=== PATIENT | female | born 1970 | race Caucasian/White ===

== ENCOUNTER → 2016-09-09 | Outpatient (CLI) | payer OTHER ==
--- NOTE | 2016-09-09 10:11 | XR ---
EXAMINATION TYPE: XR chest 2V DATE OF EXAM: 09/09/2016 9:58 AM HISTORY: Breast cancer. REFERENCE: Previous study dated 09/08/2015. FINDINGS: There has been a previous left mastectomy. The lungs are clear. Pleural spaces are clear. The heart is normal. IMPRESSION: NO ACUTE INTRATHORACIC ABNORMALITY.
--- NOTE | 2016-09-09 10:42 | MM ---
Reason for exam: history of breast cancer, mastectomy. Last mammogram was performed 1 year ago. History: Patient has history of breast cancer at age 43 and is nulliparous. Malignant US LT VAD breast biopsy of the left breast, June 26, 2013. Mastectomy. Chemotherapy. Radiation therapy. Taking tamoxifen for 3 months. Physical Findings: Nurse did not find any significant physical abnormalities on exam. MG Diagnostic Mammo RT w CAD CC, MLO, ML, spot compression MLO, and spot compression CC view(s) were taken of the right breast. Prior study comparison: September 08, 2015, right breast MG 3d diag mammo w/cad RT. September 04, 2014, right breast MG diagnostic mammo RT w CAD. The breast tissue is heterogeneously dense. This may lower the sensitivity of mammography. Finding: Architectural distortion in the upper outer quadrant of the right breast. New finding since September 08, 2015 and September 04, 2014. These results were verbally communicated with the patient and result sheet given to the patient on 09/09/16. ASSESSMENT: Incomplete: need additional imaging evaluation, BI-RAD 0 RECOMMENDATION: Ultrasound of the right breast.
--- NOTE | 2016-09-09 10:46 | USB ---
Reason for exam: additional evaluation requested from abnormal screening. History: Patient has history of breast cancer at age 43 and is nulliparous. Malignant US LT VAD breast biopsy of the left breast, June 26, 2013. Mastectomy. Chemotherapy. Radiation therapy. Taking tamoxifen for 3 months. US Breast Limited RT Right breast ultrasound demonstrates no cystic or solid lesion seen. These results were verbally communicated with the patient and result sheet given to the patient on 09/09/16. ASSESSMENT: Negative, BI-RAD 1 RECOMMENDATION: Follow-up diagnostic mammogram of the right breast in 1 year.
== END | disposition home or self-care (01) ==
LOC: RADMAMWWP 08:37
PROVIDERS: ATTEND Internal Medicine Hematology & Oncology
DX: R92.2 Inconclusive mammogram (principal); Z85.3 Personal history of malignant neoplasm of breast
CPT/HCPCS: 71020; 76642; G0206

== ENCOUNTER 2016-12-26 12:31 | Emergency (ER) | payer OTHER ==
[2016-12-26 12:40] VITALS: BP 136/97; PULSE 113; RESP 18
[2016-12-26] MEDS ORDERED: CEPHALEXIN 500 MG CAP PO STA (12:47)
[2016-12-26] MEDS ORDERED: IBUPROFEN ORAL SUSP 100 MG/5 ML CUP PO ONE (12:51)
--- NOTE | 2016-12-26 12:59 | ED ---
ENT HPI - General Chief complaint: Dental/Oral Stated complaint: Tooth abcess Time Seen by Provider: 12/26/16 12:45 Source: patient Mode of arrival: ambulatory Limitations: no limitations - History of Present Illness Initial comments: Patient is a 46-year-old female presenting to the emergency department with complaints of dental pain to tooth #28 and right-sided facial swelling that started when patient woke up this morning. Patient currently rates pain 8 out of 10, described as sharp, exacerbated with eating, no relieving factors. Patient denies chills, fevers, nausea, vomiting, shortness of breath, chest pain, or abdominal pain. Patient denies ear pain, decreased hearing, or difficulty swallowing. Patient denies antibiotic use in the last 30 days. Patient denies history of similar symptoms. No treatment prior to arrival. Context- Dental: history of dental caries, poor dental care, other (Multiple fractured teeth) Associated Symptoms: gum swelling - Related Data Home Medications Medication Instructions Recorded Confirmed Tamoxifen [Nolvadex] 20 mg PO DAILY 08/16/14 05/25/15 Previous Rx's Medication Instructions Recorded Cephalexin [Cephalexin Susp] 500 mg PO Q6H #560 ml 12/26/16 Allergies Allergy/AdvReac Type Severity Reaction Status Date / Time No Known Allergies Allergy Verified 12/26/16 12:37 Review of Systems ROS Statement: Those systems with pertinent positive or pertinent negative responses have been documented in the HPI. ROS Other: All systems not noted in ROS Statement are negative. Past Medical History Past Medical History: Cancer Additional Past Medical History / Comment(s): LT BREAST History of Any Multi-Drug Resistant Organisms: None Reported Past Surgical History: Breast Surgery Additional Past Surgical History / Comment(s): breast biopsy, port a cath insertion,, left mastectomy Past Anesthesia/Blood Transfusion Reactions: No Reported Reaction Past Psychological History: No Psychological Hx Reported Smoking Status: Former smoker Past Alcohol Use History: None Reported Past Drug Use History: None Reported - Past Family History Father Family Medical History: Cancer Mother Family Medical History: Cancer General Exam Limitations: no limitations General appearance: alert, in no apparent distress Head exam: Present: atraumatic, normocephalic, normal inspection Eye exam: Present: normal appearance. Absent: scleral icterus, conjunctival injection, periorbital swelling, periorbital tenderness ENT exam: Present: normal oropharynx, mucous membranes moist, TM's normal bilaterally, normal external ear exam Expanded Ear exam: Present: normal external inspection Mouth exam: Present: tongue normal. Absent: drooling, trismus Teeth exam: Present: dental caries, fractured tooth # (Patient has multiple fractured teeth and teeth missing.), dental tenderness # (28), other (Swelling to buccal mucosa and lower mouth on right side with no obvious abscess identified) Throat exam: normal inspection. negative: tonsillar erythema, tonsillomegaly, tonsillar exudate, R peritonsillar mass, L peritonsillar mass Neck exam: Present: normal inspection, full ROM. Absent: tenderness, lymphadenopathy Respiratory exam: Present: normal lung sounds bilaterally. Absent: respiratory distress, wheezes, rales, rhonchi, stridor Cardiovascular Exam: Present: regular rate, normal rhythm, tachycardia, normal heart sounds GI/Abdominal exam: Present: soft, normal bowel sounds. Absent: distended, tenderness, guarding, rebound, rigid Extremities exam: Present: normal inspection, full ROM, normal capillary refill. Absent: tenderness Neurological exam: Present: alert, oriented X3, normal gait, other (No focal deficits noted). Absent: motor sensory deficit Psychiatric exam: Present: normal affect, normal mood Skin exam: Present: warm, dry, intact, normal color Course Vital Signs 12/26/16 12:38 Temperature 100.3 F H Pulse Rate 113 H Respiratory 18 Rate Blood Pressure 136/97 O2 Sat by Pulse 97 Oximetry Medical Decision Making - Medical Decision Making Patient is a 46-year-old male presenting with dental pain and facial swelling to right lower mouth without drainable abscess identified. Patient started on antibiotics and given prescription for antibiotics and pain medication. Patient instructed to follow-up with [facility] on Tuesday and return to the emergency department with new or worsening symptoms. Patient agrees to treatment plan. Discharge instructions and return parameters reviewed. Disposition Clinical Impression: Toothache, Fracture of tooth, Acute pulpitis Disposition: HOME SELF-CARE Condition: Good Instructions: Dental Abscess (ED), Toothache (ED) Additional Instructions: Finish antibiotic as prescribed. Please follow-up with [facility] on Tuesday. Phone number provided on handout. Continue Motrin every 4-6 hours for pain as needed. May apply warm compresses to site to help reduce swelling. Patient returned to the emergency department with increased swelling, pain, fevers, nausea, vomiting, difficulty breathing, unable to swallow, or jaw opening. Prescriptions: Cephalexin [Cephalexin Susp] 500 mg PO Q6H #560 ml Referrals: None,Stated [Primary Care Provider] - 1-2 days Time of Disposition: 12:58
[2016-12-26] MEDS ORDERED: CEPHALEXIN 125 MG/5 ML BOTTLE PO STA (13:12)
[2016-12-26 13:50] VITALS: TEMP 100.1
== END 2016-12-26 13:49 | disposition home or self-care (01) ==
LOC: EC 12:31
DX: S02.5XXA Fracture of tooth (traumatic), initial encounter for closed fracture (principal); K04.01 Reversible pulpitis; K02.9 Dental caries, unspecified; R00.0 Tachycardia, unspecified; Z87.891 Personal history of nicotine dependence; Z79.899 Other long term (current) drug therapy; Z85.3 Personal history of malignant neoplasm of breast; Z90.12 Acquired absence of left breast and nipple
CPT/HCPCS: 99282

== ENCOUNTER → 2017-09-12 | Outpatient (CLI) | payer OTHER ==
--- NOTE | 2017-09-12 10:52 | XR ---
EXAMINATION TYPE: XR chest 2V DATE OF EXAM: 09/12/2017 COMPARISON: 09/09/2016 HISTORY: Breast cancer. Chest pain. TECHNIQUE: Frontal and lateral views of the chest are obtained. FINDINGS: There is no focal air space opacity, pleural effusion, or pneumothorax seen. The cardiac silhouette size is within normal limits. The osseous structures are intact. Minimal multilevel dege nerative changes of the thoracic spine are seen. Left breast shadow is absent from mastectomy. IMPRESSION: No acute cardiopulmonary process.
--- NOTE | 2017-09-12 13:14 | MM ---
Reason for exam: additional evaluation requested from prior study. Last mammogram was performed 1 year ago. History: Patient has history of breast cancer at age 43 and is nulliparous. Malignant US LT VAD breast biopsy of the left breast, June 26, 2013. Mastectomy. Chemotherapy. Radiation therapy. Taking tamoxifen beginning at age 44. Physical Findings: Nurse did not find any significant physical abnormalities on exam. MG Diagnostic Mammo RT w CAD CC, MLO, spot compression CC, spot compression MLO, and LM view(s) were taken of the right breast. Prior study comparison: September 09, 2016, right breast MG diagnostic mammo RT w CAD. September 08, 2015, right breast MG 3d diag mammo w/cad RT. The breast tissue is heterogeneously dense. This may lower the sensitivity of mammography. Architectural distortion and a focal asymmetry persist in the upper outer quadrant 6.5-7.5cm from nipple on the right breast in the upper outer quadrant. These results were verbally communicated with the patient and result sheet given to the patient on 09/12/17. ASSESSMENT: Incomplete: need additional imaging evaluation, BI-RAD 0 RECOMMENDATION: Ultrasound of the right breast. (upper outer quadrant)
--- NOTE | 2017-09-12 13:16 | USB ---
Reason for exam: additional evaluation requested from abnormal screening. History: Patient has history of breast cancer at age 43 and is nulliparous. Malignant US LT VAD breast biopsy of the left breast, June 26, 2013. Mastectomy. Chemotherapy. Radiation therapy. Taking tamoxifen beginning at age 44. US Breast Limited RT Right breast ultrasound demonstrates no cystic or solid lesion seen. No sonographic finding. 6 month follow up for a right breast focal asymmetry. These results were verbally communicated with the patient and result sheet given to the patient on 09/12/17. ASSESSMENT: Probably benign, BI-RAD 3 RECOMMENDATION: Ultrasound of the right breast in 6 months.
== END | disposition home or self-care (01) ==
LOC: RADMAMWWP 10:24
PROVIDERS: ATTEND Internal Medicine Hematology & Oncology
DX: Z08 Encounter for follow-up examination after completed treatment for malignant neoplasm (principal); Z85.3 Personal history of malignant neoplasm of breast; Z17.0 Estrogen receptor positive status [ER+]; Z71.3 Dietary counseling and surveillance
CPT/HCPCS: 71046; 77065

== ENCOUNTER → 2018-03-14 | Outpatient (CLI) | payer OTHER ==
--- NOTE | 2018-03-15 10:35 | MM ---
Reason for exam: additional evaluation requested from prior study. Last mammogram was performed 6 months ago. History: Patient is postmenopausal, has history of breast cancer at age 43, and is nulliparous. Malignant US LT VAD breast biopsy of the left breast, June 26, 2013. Mastectomy. Chemotherapy. Radiation therapy. Taking tamoxifen beginning at age 44. Physical Findings: Nurse did not find any significant physical abnormalities on exam. MG Diagnostic Mammo RT w CAD CC, MLO, ML, and spot compression CC view(s) were taken of the right breast. Prior study comparison: September 12, 2017, right breast MG diagnostic mammo RT w CAD. September 09, 2016, right breast MG diagnostic mammo RT w CAD. The breast tissue is heterogeneously dense. This may lower the sensitivity of mammography. Posterior and lateral asymmetric density is unchanged for 6 months. Additional 6 month follow up recommended. These results were verbally communicated with the patient and result sheet given to the patient on 03/14/18. ASSESSMENT: Probably benign, BI-RAD 3 RECOMMENDATION: Follow-up diagnostic mammogram of the right breast in 6 months.
== END | disposition home or self-care (01) ==
LOC: RADUSWWP 09:43
PROVIDERS: ATTEND Internal Medicine Hematology & Oncology
DX: R92.8 Other abnormal and inconclusive findings on diagnostic imaging of breast (principal); Z85.3 Personal history of malignant neoplasm of breast
CPT/HCPCS: 77065

== ENCOUNTER → 2018-09-22 | Outpatient (CLI) | payer OTHER ==
--- NOTE | 2018-09-22 10:37 | MM ---
Reason for exam: follow-up at short interval from prior study. Last mammogram was performed 6 months ago. History: Patient is postmenopausal, has history of breast cancer at age 43, and is nulliparous. Malignant US LT VAD breast biopsy of the left breast, June 26, 2013. Mastectomy. Chemotherapy. Radiation therapy. Taking tamoxifen beginning at age 44. Physical Findings: Nurse did not find any significant physical abnormalities on exam. MG Diagnostic Mammo RT w CAD CC, MLO, XCCL, spot compression MLO, and spot compression CC view(s) were taken of the right breast. Prior study comparison: March 14, 2018, right breast MG diagnostic mammo RT w CAD. September 12, 2017, right breast MG diagnostic mammo RT w CAD. The breast tissue is heterogeneously dense. This may lower the sensitivity of mammography. No significant new findings when compared with previous films. These results were verbally communicated with the patient and result sheet given to the patient on 09/22/18. ASSESSMENT: Benign, BI-RAD 2 RECOMMENDATION: Follow-up diagnostic mammogram of the right breast in 6 months.
== END | disposition home or self-care (01) ==
LOC: RADMAMWWP 07:28
PROVIDERS: ATTEND Internal Medicine Hematology & Oncology
DX: R92.8 Other abnormal and inconclusive findings on diagnostic imaging of breast (principal); Z85.3 Personal history of malignant neoplasm of breast
CPT/HCPCS: 77065

== ENCOUNTER → 2019-09-24 | Outpatient (CLI) | payer OTHER ==
--- NOTE | 2019-09-24 10:48 | MM ---
Reason for exam: additional evaluation requested from prior study. Last mammogram was performed 1 year ago. History: Patient is postmenopausal, has history of breast cancer at age 43, and is nulliparous. Malignant US LT VAD breast biopsy of the left breast, June 26, 2013. Mastectomy. Chemotherapy. Radiation therapy. Taking tamoxifen beginning at age 44. Physical Findings: Nurse did not find any significant physical abnormalities on exam. MG Diagnostic Mammo RT w CAD CC and MLO view(s) were taken of the right breast. Prior study comparison: September 22, 2018, right breast MG diagnostic mammo RT w CAD. March 14, 2018, right breast MG diagnostic mammo RT w CAD. The breast tissue is heterogeneously dense. This may lower the sensitivity of mammography. No suspicious abnormality. Lateral posterior depth right asymmetry appears improved from 2016. These results were verbally communicated with the patient and result sheet given to the patient on 09/24/19. ASSESSMENT: Negative, BI-RAD 1 RECOMMENDATION: Follow-up diagnostic mammogram of the right breast in 1 year.
== END | disposition home or self-care (01) ==
LOC: RADMAMWWP 09:27
PROVIDERS: ATTEND Internal Medicine Hematology & Oncology
DX: R92.8 Other abnormal and inconclusive findings on diagnostic imaging of breast (principal); Z85.3 Personal history of malignant neoplasm of breast
CPT/HCPCS: 77065

== ENCOUNTER → 2020-11-12 | Outpatient (CLI) | payer OTHER ==
--- NOTE | 2020-11-12 11:58 | MM ---
Reason for exam: additional evaluation requested from prior study. Last mammogram was performed 1 year and 2 months ago. History: Patient is postmenopausal, has history of breast cancer at age 43, and is nulliparous. Malignant US LT VAD breast biopsy of the left breast, June 26, 2013. Mastectomy. Chemotherapy. Radiation therapy. Taking tamoxifen beginning at age 44. Physical Findings: Nurse did not find any significant physical abnormalities on exam. MG Diagnostic Mammo RT w CAD CC, MLO, and XCCL view(s) were taken of the right breast. Prior study comparison: September 24, 2019, right breast MG diagnostic mammo RT w CAD. September 22, 2018, right breast MG diagnostic mammo RT w CAD. The breast tissue is heterogeneously dense. This may lower the sensitivity of mammography. There is no discrete abnormality. No significant new findings when compared with previous films. These results were verbally communicated with the patient and result sheet given to the patient on 11/12/20. ASSESSMENT: Negative, BI-RAD 1 RECOMMENDATION: Follow-up diagnostic mammogram of the right breast in 1 year.
== END | disposition home or self-care (01) ==
LOC: RADMAMWWP 10:39
PROVIDERS: ATTEND Internal Medicine Hematology & Oncology
DX: Z08 Encounter for follow-up examination after completed treatment for malignant neoplasm (principal); Z85.3 Personal history of malignant neoplasm of breast; Z90.12 Acquired absence of left breast and nipple
CPT/HCPCS: 77065

== ENCOUNTER → 2021-11-16 | Outpatient (CLI) | payer OTHER ==
--- NOTE | 2021-11-17 08:15 | MM ---
Reason for exam: screening (asymptomatic). Last mammogram was performed 1 year ago. History: Patient is postmenopausal, has history of breast cancer at age 43, and is nulliparous. Malignant US LT VAD breast biopsy of the left breast, June 26, 2013. Mastectomy. Chemotherapy. Radiation therapy. Taking tamoxifen beginning at age 44. Physical Findings: A clinical breast exam by your physician is recommended on an annual basis and results should be correlated with mammographic findings. MG Screen Stephie Unilateral W/Cad CC and MLO view(s) were taken of the right breast. Prior study comparison: November 12, 2020, right breast MG diagnostic mammo RT w CAD. September 24, 2019, right breast MG diagnostic mammo RT w CAD. The breast tissue is heterogeneously dense. This may lower the sensitivity of mammography. There is no discrete abnormality. ASSESSMENT: Negative, BI-RAD 1 RECOMMENDATION: Routine screening mammogram of the right breast in 1 year.
== END | disposition home or self-care (01) ==
LOC: RADMAMWWP 09:25
PROVIDERS: ATTEND Internal Medicine Hematology & Oncology
DX: Z12.31 Encounter for screening mammogram for malignant neoplasm of breast (principal); Z78.0 Asymptomatic menopausal state; Z85.3 Personal history of malignant neoplasm of breast; Z90.10 Acquired absence of unspecified breast and nipple; Z92.3 Personal history of irradiation
CPT/HCPCS: 77067

== ENCOUNTER → 2022-11-17 | Outpatient (CLI) | payer OTHER ==
--- NOTE | 2022-11-18 09:10 | MM ---
Reason for Exam: Screening (asymptomatic). Last screening mammogram was performed 12 month(s) ago. Patient History: Menarche at age 14. Patient has no children. Postmenopausal. Breast cancer, left, age 43. Currently using Tamoxifen, starting at age 44. Mastectomy. 06/26/2013, Malignant Core Biopsy on the left side. Chemotherapy. Radiation Therapy. Prior Study Comparison: 09/09/2016 Right Diagnostic Mammogram, [facility]. 09/12/2017 Right Diagnostic Mammogram, [facility]. 03/14/2018 Right Diagnostic Mammogram, [facility]. 09/22/2018 Right Diagnostic Mammogram, [facility]. 09/24/2019 Right Diagnostic Mammogram, [facility]. 11/12/2020 Right Diagnostic Mammogram, [facility]. 11/16/2021 Right Screening Mammogram, [facility]. Tissue Density: Right: The breast tissue is heterogeneously dense. This may lower the sensitivity of mammography. Findings: Analyzed By CAD. There is no suspicious new group of microcalcifications or new suspicious mass in the right breast. Overall Assessment: Negative, BI-RAD 1 Management: Screening Mammogram of the right breast in 1 year. . Patient should continue monthly self-breast exams. A clinical breast exam by your physician is recommended on an annual basis. This exam should not preclude additional follow-up of suspicious palpable abnormalities. Note on Estephanie scores and lifetime risk: 1. A Estephanie score greater than 3% is considered moderate risk. If this is the case, consider specialist referral to assess eligibility for a risk reducing agent. 2. If overall lifetime risk for the development of breast cancer is 20% or higher, the patient may qualify for future screening with alternating mammogram and breast MRI. Electronically signed and approved by: Bernardo Terrazas M.D.
== END | disposition home or self-care (01) ==
LOC: RADMAMWWP 09:47
PROVIDERS: ATTEND Internal Medicine Hematology & Oncology
DX: Z12.31 Encounter for screening mammogram for malignant neoplasm of breast (principal); Z78.0 Asymptomatic menopausal state
CPT/HCPCS: 77067

== ENCOUNTER → 2023-11-23 | Outpatient (CLI) | payer OTHER ==
--- NOTE | 2023-11-23 11:18 | MM ---
Reason for Exam: Follow-up at short interval from prior study. Last mammogram was performed 10 year(s) and 7 month(s) ago. Patient History: Menarche at age 14. Patient has no children. Postmenopausal. Breast cancer, left, age 43. Currently using Tamoxifen, starting at age 44. Mastectomy. 06/26/2013, Malignant Core Biopsy on the left side. Chemotherapy. Radiation Therapy. Prior Study Comparison: 11/12/2020 Right Diagnostic Mammogram, [facility]. 11/16/2021 Right Screening Mammogram, [facility]. 11/17/2022 Right MG 3D scr madhu unilateral w/cad., [facility]. Tissue Density: Right: The breasts are heterogeneously dense, which may obscure small masses. Findings: Analyzed By CAD. Subareolar asymmetric density does not persist on additional views. No significant change from prior exams. Overall Assessment: Benign, BI-RAD 2 Management: Screening Mammogram of the right breast in 1 year. . Results were given to the patient verbally at the time of exam. Patient should continue monthly self-breast exams. A clinical breast exam by your physician is recommended on an annual basis. This exam should not preclude additional follow-up of suspicious palpable abnormalities. Electronically signed and approved by: Estefania Teresa M.D. Radiologist
== END | disposition home or self-care (01) ==
LOC: RADMAMWWP 10:39
PROVIDERS: ATTEND Internal Medicine Hematology & Oncology
DX: R92.331 Mammographic heterogeneous density, right breast (principal); C50.112 Malignant neoplasm of central portion of left female breast; Z17.0 Estrogen receptor positive status [ER+]; Z71.3 Dietary counseling and surveillance; Z78.0 Asymptomatic menopausal state
CPT/HCPCS: 77065; G0279; 77061